=== PATIENT | female | born 1935 | race Native Hawaiian/Other Pacific Islander ===

== ENCOUNTER 2020-03-19 22:33 | Emergency (ER) | payer OTHER ==
[~2020-03-19] VITALS: Ht 162.6 cm; Wt 99.8 kg
[2020-03-19 23:26] LABS: PLATELET COUNT 225 K/uL (152-353)
[2020-03-19 23:55] LABS: POTASSIUM 4.3 mmol/L (3.6-5.2); SODIUM 140 mmol/L (136-145)
[2020-03-19 23:59] LABS: PARTIAL THROMBOPLASTIN TIME 25.9 SECONDS (24.5-33.6)
[2020-03-20 01:27] VITALS: BP 100/78; TEMP 98.9
== END 2020-03-20 01:27 | disposition still patient (30) ==
LOC: ED 22:33
PROVIDERS: Hospitalist
DX: I95.2 Hypotension due to drugs (principal); I48.20 Chronic atrial fibrillation, unspecified; T46.5X5A Adverse effect of other antihypertensive drugs, initial encounter; Y92.89 Other specified places as the place of occurrence of the external cause
CPT/HCPCS: 36415; 80053; 82550; 83880; 84484; 85027; 85610; 85730; 93005; 96360; 96361; 99284; J3490